=== PATIENT | male | born 1950 | race Caucasian/White ===

== ENCOUNTER → 2017-05-01 | Outpatient (REF) ==
[~2017-05-01] MED LIST: ASPI1TAB PO; ATOR1TAB21 PO; CIPR-249 PO; FINA5TAB2 PO; FLOM5CAP PO; TYLE325T5 PO; mvi PO
--- NOTE | 2017-05-01 09:59 | REP ---
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 There is slight great toe hallux valgus. Mineralization joint spaces are otherwise. There are no calcifications or foreign bodies. On the lateral standing view. The plantar arch appears unremarkable. 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 There is slight great toe hallux valgus. Mineralization and joint spaces are otherwise unremarkable. On the lateral standing view. The plantar arch is unremarkable. Signed by Christopher Thakkar MD 05/01/2017 09:50 A
== END ==
LOC: M RAD 08:18
PROVIDERS: ATTEND Internal Medicine
DX: H20.10 Chronic iridocyclitis, unspecified eye (principal); Z01.818 Encounter for other preprocedural examination

== ENCOUNTER 2017-05-09 09:15 | Emergency (ER) | payer OTHER, MEDICARE ==
[~2017-05-09] VITALS: Ht 175.3 cm; Wt 77.3 kg
[2017-05-09] MEDS ORDERED: ATOR1TAB21 PO (09:32)
[2017-05-09] MEDS ORDERED: mvi PO (09:32)
[2017-05-09] MEDS ORDERED: ASPI1TAB PO (09:32)
[2017-05-09] MEDS ORDERED: FINA5TAB2 PO (09:32)
[2017-05-09] MEDS ORDERED: FLOM5CAP PO (09:32)
[2017-05-09] MEDS ORDERED: ACETAMINOPHEN TAB 650MG DOSE (2X325MG) PO ONE (10:15)
[2017-05-09] MEDS ORDERED: TYLE325T5 PO (10:45)
[2017-05-09] MEDS ORDERED: CIPR-249 PO (10:45)
--- NOTE | 2017-05-09 10:55 | REP ---
SCROTAL ULTRASOUND: Real-time sonographic evaluation of the scrotum and contents performed. Testicles are normal in size and echotexture, right testicle measuring 3.6 x 2.6 x 2.6 cm and left testicle 3.8 x 2.3 x 2.6 cm. A few tiny calcifications are seen scattered in the right testicle. There is no testicular mass or torsion with blood flow seen in each testicle with duplex Doppler evaluation, RI right testicle 0.55 and left testicle 0.33. There is increased blood flow with duplex Doppler evaluation within the right testicle. There is also some enlargement of the right epididymis with increased blood flow. Findings are compatible with right epididymitis and/or orchitis. Multiple tiny cystic changes are seen in the mediastinum of the left testis compatible with tubular ectasia. There is no left testicular mass. Cyst is seen in the head of the left epididymis, 2.0 x 1.5 x 2.1 cm. There are small bilateral hydroceles. IMPRESSION: Findings compatible with right sided epididymitis and orchitis. Small bilateral hydroceles. Signed by Christopher Shoemaker MD 05/09/2017 05:33 P
[2017-05-09 11:26] VITALS: BP 134/79
== END 2017-05-09 11:30 | disposition home or self-care (01) ==
LOC: M ED 09:15
DX: N39.0 Urinary tract infection, site not specified (principal); N45.3 Epididymo-orchitis

== ENCOUNTER → 2018-01-06 | Outpatient (CLI) | payer OTHER | LOC: M RAD 10:10 | DX: N63.20 Unspecified lump in the left breast, unspecified quadrant (principal); N62 Hypertrophy of breast | CPT/HCPCS: 77066 ==

== ENCOUNTER 2018-05-28 09:52 | Day surgery (SDC) | payer OTHER ==
[2018-05-28] MEDS ORDERED: PROPOFOL 200 MG/20 ML VIAL As Ordered (10:09)
[2018-05-28] MEDS: NS 1,000 ML IV (10:21)
== END 2018-05-28 12:43 | disposition home or self-care (01) ==
LOC: M OPP 09:52
DX: Z86.010 Personal history of colon polyps (principal); E78.5 Hyperlipidemia, unspecified; R12 Heartburn; K27.9 Peptic ulcer, site unspecified, unspecified as acute or chronic, without hemorrhage or perforation; M12.9 Arthropathy, unspecified; N40.0 Benign prostatic hyperplasia without lower urinary tract symptoms; Z79.899 Other long term (current) drug therapy
CPT/HCPCS: 45380